=== PATIENT | female | born 1930 | race Asian ===

== ENCOUNTER 2017-05-16 05:22 | Day surgery (SDC) | payer OTHER ==
[~2017-05-16] VITALS: Ht 152.4 cm; Wt 50.3 kg
[~2017-05-16 05:22] MED LIST: ASPIRIN81 M2 PO; AZOR PO; Amaryl PO; Aspirin E.C. PO; CLOBEX59 ML TP; Colace PO; LIPITOR20 MG PO; Milk Of Magnesia,MOM PO; NEPHRO-VITE RX1 EACH PO; NIZORAL A-D200 ML TP; NORVASC10 MG PO; TYLENOL 325 MG PO; Ultracet PO
[2017-05-16 06:08] VITALS: BP 181/74
[2017-05-16 07:08] LABS: ANION GAP 12 MEQ/L (2-14); CHLORIDE 100 MEQ/L (99-109); GFR ESTIMATE (CALCULATED) 11 mL/min/; GLUCOSE 129 mg/dL (70-99); POTASSIUM 4.3 MEQ/L (3.7-5.4); SAMPLE HEMOLYSIS CHECK 0; SAMPLE ICTERIC CHECK 0; SAMPLE LIPEMIA CHECK 0; SODIUM 135 MEQ/L (136-147); UREA NITROGEN (BUN) 45 mg/dL (9-23)
[2017-05-16 07:12] LABS: METH RESISTANT S AUREUS PCR NEGATIVE (NEGATIVE)
[2017-05-16 07:13] LABS: PROBE CHECK PASS; SPECIMEN PROCESSING CONTROL PASS
[2017-05-16 08:46] LABS: POINT-OF-CARE METER ID UU13113675
[2017-05-16 09:09] VITALS: BP 163/86
[2017-05-16 10:20] VITALS: BP 183/76
== END 2017-05-16 10:27 | disposition home or self-care (01) ==
LOC: SDC 05:22
PROVIDERS: Obstetrics & Gynecology Gynecologic Oncology
DX: D07.1 Carcinoma in situ of vulva (principal); D07.2 Carcinoma in situ of vagina; Z85.41 Personal history of malignant neoplasm of cervix uteri; I12.9 Hypertensive chronic kidney disease with stage 1 through stage 4 chronic kidney disease, or unspecified chronic kidney disease; E11.22 Type 2 diabetes mellitus with diabetic chronic kidney disease; N18.9 Chronic kidney disease, unspecified; M85.80 Other specified disorders of bone density and structure, unspecified site; B97.7 Papillomavirus as the cause of diseases classified elsewhere; Z79.82 Long term (current) use of aspirin
CPT/HCPCS: 80048; 82948; 87641; 88305; 88342 TC; J0690; J2405; J3010